=== PATIENT | female | born 1940 | race Caucasian/White ===

== ENCOUNTER 2019-05-26 12:00 | Inpatient (IN) | payer MEDICARE, OTHER, MEDICAID ==
[2019-05-26] VITALS (9 sets, daily range): BP systolic 133–168; BP diastolic 51–91
[~2019-05-26] VITALS: Ht 144.8 cm; Wt 84.8 kg
[2019-05-26] MEDS ORDERED: ETOMIDATE 20 MG/10 ML VIAL IV ONE ×2 (12:05→13:30)
[2019-05-26] MEDS ORDERED: SUCCINYLCHOLINE CHLORIDE 200 MG/10 ML VIAL IV ONE ×2 (12:05→13:30)
[2019-05-26] MEDS ORDERED: methylPREDNISolone SOD SUCC 125 MG/2 ML VIAL ONE (12:12)
[2019-05-26] MEDS ORDERED: TRIA15CR2 TP (12:12)
[2019-05-26] MEDS ORDERED: FURO20TA4 PO (12:12)
[2019-05-26] MEDS ORDERED: GABA-534 PO (12:12)
[2019-05-26] MEDS ORDERED: NIFE20CA8 PO (12:12)
[2019-05-26] MEDS ORDERED: LOSA50TA39 PO (12:12)
[2019-05-26] MEDS ORDERED: CALC1TAB30 PO (12:12)
[2019-05-26] MEDS ORDERED: ALBUTEROL SULFATE 2.5 MG/3 ML NEBU NEB ONE (12:15)
[2019-05-26] MEDS ORDERED: IPRATROPIUM BROMIDE 0.5 MG/2.5 ML NEBU NEB ONE (12:15)
[2019-05-26] MEDS ORDERED: methylPREDNISolone SOD SUCC 125 MG/2 ML VIAL IV ONE (12:15)
--- NOTE | 2019-05-26 12:27 | NUR ---
Accompained pt to Ct, w/ ACLS protocol.
[2019-05-26] MEDS ORDERED: PANT40TA4 PO (12:30)
[2019-05-26] MEDS ORDERED: ALEN70TA6 PO (12:30)
[2019-05-26] MEDS ORDERED: FLUT1BLS6 IH (12:30)
[2019-05-26] MEDS ORDERED: TIZA4TAB5 PO (12:30)
[2019-05-26] MEDS ORDERED: ROSU10TA2 PO (12:30)
[2019-05-26] MEDS ORDERED: DIGO250T PO (12:30)
[2019-05-26] MEDS ORDERED: METR250T36 PO (12:30)
[2019-05-26] MEDS ORDERED: METO25TA6 PO (12:30)
[2019-05-26] MEDS ORDERED: ROFL500T PO (12:30)
[2019-05-26] MEDS ORDERED: ASPI81TA31 PO (12:30)
[2019-05-26] MEDS ORDERED: ICOS1CAP PO (12:30)
[2019-05-26] MEDS ORDERED: ALBUTEROL SULFATE 2.5 MG/ 0.5 ML NEBU ONE (12:34)
[2019-05-26] MEDS ORDERED: IPRATROPIUM BROMIDE 0.5 MG/2.5 ML NEBU ONE (12:34)
[2019-05-26 12:36] LABS: BASOPHILS % (AUTO) 0.2 % (0.0-2.0); EOSINOPHILS % (AUTO) 0.4 % (0.0-7.0); HEMOGLOBIN 9.7 g/dL (10.9-14.3); LYMPHOCYTES # (AUTO) 0.7 K/uL (20.0-40.0); LYMPHOCYTES % (AUTO) 7.4 % (20.5-51.5); MEAN CORPUSCULAR HEMOGLOBIN 28.2 uug (24.7-32.8); MEAN CORPUSCULAR HGB CONC 31 g/dL (32.3-35.6); MEAN CORPUSCULAR VOLUME 90.3 fL (75.5-95.3); MONOCYTES # (AUTO) 0.6 K/uL (2.0-10.0); MONOCYTES % (AUTO) 6.3 % (0.0-11.0); NEUTROPHILS # (AUTO) 8.1 K/uL (1.8-8.9); NEUTROPHILS % (AUTO) 85.7 % (38.5-71.5); PLATELET COUNT (AUTO) 156 K/uL (179-408); RED BLOOD CELL COUNT(AUTO) 3.44 MIL/uL (3.63-4.92); WHITE BLOOD COUNT (AUTO) 9.5 K/uL (3.8-11.8)
--- NOTE | 2019-05-26 12:44 | NUR ---
Pt back to bed, family at the bedside.
[2019-05-26 12:56] LABS: BILIRUBIN,DIRECT 0.1 mg/dL (0.0-0.2); BILIRUBIN,TOTAL 0.4 mg/dL (0.2-1.0); CREATININE 0.7 mg/dL (0.6-1.3); POTASSIUM 4.8 mmol/L (3.5-5.1); TOTAL PROTEIN, SERUM 7.6 g/dL (6.4-8.2)
--- NOTE | 2019-05-26 13:15 | NUR ---
Pt received in ER under respiratory distress. Pt placed on BIPAP while running ABG results. Results reported to MD. ER MD decided to intubated Pt post report of ABG results. Pt intubated with 7.5 ETT secured at 23cm lip line. Pt placed on Garcia vent with ordered settings of A/C-16, VT-600, FIO2-100% Intubated with no complications. Good color changed on CO2 capnography. Equal and bilateral breath sounds auscultated. ETT secured using AnchorFast device. Pt suctioned for small amount of yellowish secretions. Sputum sample sent to lab. Pt tolerating vent settings well. SpO2-99% Vent alarm parameters checked, on audible. Vent plugged into red emergency outlet. Will continue to monitor.
[2019-05-26] MEDS ORDERED: levoFLOXacin 750MG/D5W 150 ML IV ONE ×2 (13:26→13:30)
[2019-05-26] MEDS ORDERED: PROPOFOL 100 ML IV ONE (13:50)
[2019-05-26] MEDS ORDERED: LORAZEPAM 2 MG/1 ML VIAL ONE (13:51)
[2019-05-26] MEDS ORDERED: PROPOFOL 200 MG/20 ML BOTTLE ONE (13:57)
[2019-05-26] MEDS ORDERED: PROPOFOL 100 ML ONE (13:58)
[2019-05-26] MEDS ORDERED: LORAZEPAM 2 MG/1 ML VIAL IV ONE (14:00)
[2019-05-26] MEDS ORDERED: IV NORMAL SALINE 1000 ML BAG IV ONE (14:00)
[2019-05-26 14:52] LABS: *BILIRUBIN,URIN NEGATIVE (NEGATIVE); *BLOOD, URINE NEGATIVE (NEGATIVE); *CLARITY,URINE CLEAR (CLEAR); *COLOR,URINE YELLOW (YELLOW); *KETONES,URINE NEGATIVE (NEGATIVE); *UROBILINOGEN,URINE 0.2 E.U./dl (NORMAL); LEUKOCYTE ESTERASE ,URINE NEGATIVE (NEGATIVE); NITRITE, URINE NEGATIVE (NEGATIVE); PH,URINE 5.5 (5.0-8.0); UGLUCOSE NEGATIVE (NEGATIVE)
--- NOTE | 2019-05-26 15:10 | NUR ---
Patient in from E.R. accompanied by RKmN. And RT team. patient on ventilator A/C 16, Tv. 600 FIO2 90%. ETT 7.5, 23LL. On propofol running at 10ml/hr patient noted to be restless agitated, on soft restrains. Situated in bed, and connected to ICU monitoring. vitals of : HR of 73, 100% saturation, sbp of 133/91. Over all skin c.d.i. no injuries noted. Will continue to monitor. Attending physician called to be notified. Awaiting call back.
--- NOTE | 2019-05-26 15:15 | NUR ---
Patient arousable with coughing and gagging and triggering vent alarm propofol titrated up to achieve optimal sedation. See IV flow sheet.
[2019-05-26] MEDS: LORAZEPAM 2 MG/1 ML VIAL IV PRN ×2 (16:28→23:12)
--- NOTE | 2019-05-26 17:30 | NUR ---
Pulmonary services, Dr. Hi Mckenzie. in the unit to see and examine patient, aware of latest ABG results.
[2019-05-26] MEDS: PROPOFOL 100 ML IV PRN ×2 (17:40→21:55)
[2019-05-26] MEDS: ENOXAPARIN SODIUM 40 MG/0.4 ML DISP.SYRIN SQ SCH (18:05)
--- NOTE | 2019-05-26 18:07 | NUR ---
Attending physician Davidson Da Silva in the unit to examine patient, and at this time had an extensive care plan discussion with pt's daughter in law MsKm Dorsey and Bella who remain at bedside.
[2019-05-26] MEDS: IV NORMAL SALINE 250 ML IV PRN (18:43)
[2019-05-26] MEDS: CEFTRIAXONE 1 G in IV DEXTROSE 5% 50 ML IV SCH (18:45)
--- NOTE | 2019-05-26 19:55 | NUR ---
PT RECEIVED ON CONTINUOUS VENT AC 16 VT600 FIO2 90%. ETT SECURED AT 23 CM LIP LINE VIA ANCHOR FAST. BS DIMINISHED. SUCTION PRN SMALL AMOUNT THICK PALE YELLOW SECRETIONS. VENT CHECKED, ALARMS WORKING WELL AND AUDIBLE. NO DISTRESS NOTED AT THIS TIME. WILL CONTINUE TO MONITOR.
--- NOTE | 2019-05-26 20:00 | NUR ---
RECEIVED PT. ORALLY INTUBATED TO VENT W/ SETTINGS OF AC-16,TV-600,FIO2-90% W/ O2 SAT OF 96%. SUCTIONED VIA ETT & ORALLY W/ THIN WHITISH SMALL AMT.OF MUCOUS. ON DIPRIVAN DRIP @ 50MCQ/KG/MIN ON LFA. NS @ TKO RATE ON L WRIST FOR IVPB MEDS. TEMP-99.7, COOLING MEASURES DONE. REPOSITIONED PT ON HER W/ HOB ELEVATED.
[2019-05-26] MEDS: FAMOTIDINE. 20 MG/2 ML VIAL IV SCH (20:28)
[2019-05-26] MEDS: methylPREDNISolone SOD SUCC 40 MG/ML VIAL IV SCH (21:54)
--- NOTE | 2019-05-26 23:00 | NUR ---
HS CARE DONE. SUCTIONED & REPOSITIONED W/ HOB ELEVATED. ORAL CARE DONE
[2019-05-27] VITALS (25 sets, daily range): BP systolic 141–177; BP diastolic 52–86
--- NOTE | 2019-05-27 | NUR ---
[facility] FR#16 INSERTED ON R NARE.
[2019-05-27] MEDS: PROPOFOL 100 ML IV PRN ×6 (01:24→19:33)
[2019-05-27 03:14] LABS: ABG BASE EXCESS 20.7 mmol/L; ABG HCO3 46.3 mmol/L; ABG PCO2 59.1 mmHg (35.0-45.0); ABG PH 7.512 (7.350-7.450); ABG SITE LEFT BRACHIAL; ABG TOTAL HEMOGLOBIN 9.4 G/dL (12.0-16.0); COHb 1.4 % (0.5-1.5); MetHb 0.1 % (0.0-1.5); VENT MODE VENT - A/C; VT, ABG 600 mL
--- NOTE | 2019-05-27 04:30 | NUR ---
AM CARE DONE. ORAL CARE DONE. REPOSITIONED & SUCTIONED.
[2019-05-27 05:12] LABS: BASOPHILS % (AUTO) 0.2 % (0.0-2.0); EOSINOPHILS % (AUTO) 0.2 % (0.0-7.0); HEMATOCRIT 26.3 % (31.2-41.9); HEMOGLOBIN 8.8 g/dL (10.9-14.3); LYMPHOCYTES # (AUTO) 0.4 K/uL (20.0-40.0); LYMPHOCYTES % (AUTO) 6.5 % (20.5-51.5); MEAN CORPUSCULAR HEMOGLOBIN 28.7 uug (24.7-32.8); MEAN CORPUSCULAR HGB CONC 33 g/dL (32.3-35.6); MEAN CORPUSCULAR VOLUME 86.1 fL (75.5-95.3); MONOCYTES # (AUTO) 0.4 K/uL (2.0-10.0); MONOCYTES % (AUTO) 5.7 % (0.0-11.0); NEUTROPHILS % (AUTO) 87.4 % (38.5-71.5); PLATELET COUNT (AUTO) 158 K/uL (179-408); RED BLOOD CELL COUNT(AUTO) 3.05 MIL/uL (3.63-4.92); WHITE BLOOD COUNT (AUTO) 6.9 K/uL (3.8-11.8)
--- NOTE | 2019-05-27 05:25 | NUR ---
CXR DONE .TO CONFIRM NGT PLACEMENT.
[2019-05-27 05:26] LABS: BILIRUBIN,TOTAL 0.4 mg/dL (0.2-1.0); CREATININE 0.7 mg/dL (0.6-1.3); MAGNESIUM 1.7 mg/dL (1.8-2.4); POTASSIUM 4.6 mmol/L (3.5-5.1); TOTAL PROTEIN, SERUM 6.4 g/dL (6.4-8.2)
[2019-05-27] MEDS: methylPREDNISolone SOD SUCC 40 MG/ML VIAL IV SCH ×3 (05:29→21:42)
[2019-05-27 05:37] LABS: THYROID STIMULATING HORMONE 0.536 mIU/mL (0.358-3.740)
[2019-05-27] MEDS: FAMOTIDINE. 20 MG/2 ML VIAL IV SCH ×2 (09:02→21:04)
--- NOTE | 2019-05-27 09:30 | NUR ---
Doctor Do in the unit to see patient. new vent changes.
[2019-05-27 10:15] LABS: ABG BASE EXCESS 15.5 mmol/L; ABG HCO3 40.9 mmol/L; ABG PCO2 53.2 mmHg (35.0-45.0); ABG PH 7.504 (7.350-7.450); ABG PO2 73.2 mmHg (75.0-100.0); ABG SITE RIGHT RADIAL; ABG TOTAL HEMOGLOBIN 12.6 G/dL (12.0-16.0); COHb 1.1 % (0.5-1.5); MetHb 0.1 % (0.0-1.5); O2Hb 94.6 % (94.0-97.0); VENT MODE VENT - A/C 16; VT, ABG 600 mL
[2019-05-27 10:15] LABS: ABG BASE EXCESS 21.5 mmol/L; ABG HCO3 54.1 mmol/L; ABG PCO2 137.7 mmHg (35.0-45.0); ABG PH 7.212 (7.350-7.450); ABG PO2 91.9 mmHg (75.0-100.0); ABG SITE LEFT BRACHIAL; ABG TOTAL HEMOGLOBIN 10.2 G/dL (12.0-16.0); COHb 2.3 % (0.5-1.5); MetHb 0.1 % (0.0-1.5); VENT MODE BIPAP
[2019-05-27] MEDS: MAGNESIUM SULFATE/D5W 100 ML IV SCH ×2 (10:52→12:02)
[2019-05-27] MEDS ORDERED: DEXTROSE 5% IV ONE (11:00)
[2019-05-27] MEDS ORDERED: SODIUM PHOSPHATE MM IV ONE (11:00)
[2019-05-27] MEDS: IPRATROPIUM BROMIDE 0.5 MG/2.5 ML NEBU NEB SCH ×4 (11:59→22:40)
[2019-05-27] MEDS: ALBUTEROL SULFATE 2.5 MG/3 ML NEBU NEB SCH ×4 (11:59→22:40)
--- NOTE | 2019-05-27 15:00 | NUR ---
doctor al in the unit informed and updated. prn order for bp ordered at this time only.
[2019-05-27] MEDS ORDERED: hydrALAZINE HCL 20 MG/1 ML VIAL IV PRN (17:30)
--- NOTE | 2019-05-27 17:30 | NUR ---
PT REC'D ORALLY INTUBATED ON FULL VENT SUPPORT, PT TOLERATING SETTINGS WELL AT THIS TIME. INLINE NEB TX'S STARTED Q4, TOLERATED WELL NO ADVERSE REACTIONS NOTED TO TX. PT SXN'D Q2 NEEDED, VENT ALARMS AUDIBLE CHECKED AND RESET. BVM AT BEDSIDE. CONT WITH CURRENT RT ORDERS. CONT TO MONITOR AND REPORT ANY CHANGES.
[2019-05-27] MEDS: CEFTRIAXONE 1 G in IV DEXTROSE 5% 50 ML IV SCH (18:13)
[2019-05-27] MEDS: ENOXAPARIN SODIUM 40 MG/0.4 ML DISP.SYRIN SQ SCH (18:46)
--- NOTE | 2019-05-27 20:00 | NUR ---
Report received. Patient orally intubated and attached to mechanical ventilator with settings: AC=16, KA=169 ml, FIO2=70%, PEEP=5cm. Saturations above 94%. Opens eyes and grimaces to pain but doesn't follow commands. On continuous Diprivan drip for sedation via MARYAM midline. Addendum: 05/28/19 at 0642 by FORD GUIDO RN Amended: Links added. Addendum: 05/28/19 at 0644 by FORD GUIDO RN Amended: Links added. Addendum: 05/28/19 at 0648 by FORD GUIDO RN Amended: Links added.
--- NOTE | 2019-05-27 22:00 | NUR ---
Hydralazine 10 mg IV given for SBP above 170. Addendum: 05/28/19 at 0644 by FORD GUIDO RN Amended: Links added. Addendum: 05/28/19 at 0648 by FORD GUIDO RN Amended: Links added.
--- NOTE | 2019-05-27 22:30 | NUR ---
Hydralazine effective.
[2019-05-28] VITALS (21 sets, daily range): BP systolic 122–162; BP diastolic 53–65
[2019-05-28] MEDS: PROPOFOL 100 ML IV PRN ×7 (00:13→21:59)
[2019-05-28] MEDS: IPRATROPIUM BROMIDE 0.5 MG/2.5 ML NEBU NEB SCH ×7 (02:47→23:07)
[2019-05-28] MEDS: ALBUTEROL SULFATE 2.5 MG/3 ML NEBU NEB SCH ×7 (02:47→23:07)
[2019-05-28] MEDS: IV NORMAL SALINE 250 ML IV PRN (04:11)
[2019-05-28 05:22] LABS: BASOPHILS % (AUTO) 0.1 % (0.0-2.0); EOSINOPHILS % (AUTO) 0.1 % (0.0-7.0); HEMATOCRIT 27.4 % (31.2-41.9); HEMOGLOBIN 8.9 g/dL (10.9-14.3); LYMPHOCYTES # (AUTO) 0.4 K/uL (20.0-40.0); LYMPHOCYTES % (AUTO) 6.3 % (20.5-51.5); MEAN CORPUSCULAR HEMOGLOBIN 28.2 uug (24.7-32.8); MEAN CORPUSCULAR HGB CONC 33 g/dL (32.3-35.6); MEAN CORPUSCULAR VOLUME 86.6 fL (75.5-95.3); MONOCYTES # (AUTO) 0.4 K/uL (2.0-10.0); MONOCYTES % (AUTO) 5.3 % (0.0-11.0); NEUTROPHILS # (AUTO) 5.9 K/uL (1.8-8.9); NEUTROPHILS % (AUTO) 88.2 % (38.5-71.5); PLATELET COUNT (AUTO) 205 K/uL (179-408); RED BLOOD CELL COUNT(AUTO) 3.16 MIL/uL (3.63-4.92); WHITE BLOOD COUNT (AUTO) 6.7 K/uL (3.8-11.8)
[2019-05-28 05:27] LABS: CREATININE 0.7 mg/dL (0.6-1.3); MAGNESIUM 2.3 mg/dL (1.8-2.4); PHOSPHOROUS 4.5 mg/dL (2.5-4.9); POTASSIUM 4.1 mmol/L (3.5-5.1)
[2019-05-28] MEDS: methylPREDNISolone SOD SUCC 40 MG/ML VIAL IV SCH ×2 (05:58→21:07)
--- NOTE | 2019-05-28 06:45 | NUR ---
No neuro changes. Remains on Diprivan drip at 40 mcg/kg/min. Addendum: 05/28/19 at 0648 by FORD GUIDO RN Amended: Links added.
[2019-05-28] MEDS: FAMOTIDINE. 20 MG/2 ML VIAL IV SCH ×2 (08:28→21:07)
[2019-05-28] MEDS: LORAZEPAM 2 MG/1 ML VIAL IV PRN ×3 (08:34→22:27)
[2019-05-28 08:52] LABS: ABG BASE EXCESS 12.1 mmol/L; ABG HCO3 35.8 mmol/L; ABG PCO2 42.9 mmHg (35.0-45.0); ABG PH 7.539 (7.350-7.450); ABG PO2 128.5 mmHg (75.0-100.0); ABG SITE LEFT RADIAL; ABG TOTAL HEMOGLOBIN 9.7 G/dL (12.0-16.0); MetHb 0.2 % (0.0-1.5); O2Hb 97.8 % (94.0-97.0); VENT MODE VENT - A/C; VT, ABG 600 mL
--- NOTE | 2019-05-28 09:45 | NUR ---
Pulmonary services, Dr. Do in the unit to see and examine patient, full report given, orders received, see order hx.
--- NOTE | 2019-05-28 11:20 | NUR ---
Attending physician, Dr. Ortiz in the unit to see and examine patient, report given orders to change frequency for ativan received to achieve adequate sedation.
[2019-05-28] MEDS ORDERED: levoFLOXacin 750MG/D5W 750 MG in PREMIXED 1 EACH IV SCH (13:30)
[2019-05-28] MEDS: CEFTRIAXONE 1 G in IV DEXTROSE 5% 50 ML IV SCH (17:01)
[2019-05-28] MEDS: ENOXAPARIN SODIUM 40 MG/0.4 ML DISP.SYRIN SQ SCH (17:04)
--- NOTE | 2019-05-28 19:30 | NUR ---
Report received. Patient orally intubated and to mechanical ventilator with settings: AC=16, FIO2=60%, PEEP=5 cm and CV=080 ml. Saturation=95%. Suctioned for large amounts of clear oral secretions. With facial grimacing during care. Turned and repositioned. On Diprivan drip continuously for sedation. Doesn't open eyes to name, but able to bring hand and attempts to reach for the ETT when suctioned. Assessment completed. Addendum: 05/28/19 at 2302 by FORD GUIDO RN Amended: Links added. Addendum: 05/28/19 at 2303 by FORD GUIDO RN Amended: Links added. Addendum: 05/28/19 at 2303 by FORD GUIDO RN Amended: Links added. Addendum: 05/28/19 at 2303 by FORD GUIDO RN Amended: Links added. Addendum: 05/28/19 at 2303 by FORD GUIDO RN Amended: Links added. Addendum: 05/28/19 at 2304 by FORD GUIDO RN Amended: Links added. Addendum: 05/28/19 at 2305 by FORD GUIDO RN Amended: Links added. Addendum: 05/28/19 at 2305 by FORD GUIDO RN Amended: Links added. Addendum: 05/28/19 at 8461 by FORD GUIDO RN Amended: Links added.
--- NOTE | 2019-05-28 22:00 | NUR ---
Saturations 88-92%. Suctioned for thick white, majano secretions from ETT. With large clear oral secretions. Patient grimaces to pain. Medicated with Ativan IV. Monitored closely. Repositioned; HOB above 30 degrees at all times. Addendum: 05/28/19 at 2257 by FORD GUIDO RN Amended: Links added. Addendum: 05/28/19 at 2303 by FORD GUIDO RN Amended: Links added. Addendum: 05/28/19 at 2303 by FORD GUIDO RN Amended: Links added. Addendum: 05/28/19 at 2304 by FORD GUIDO RN Amended: Links added. Addendum: 05/28/19 at 2304 by FORD GUIDO RN Amended: Links added. Addendum: 05/28/19 at 2304 by FORD GUIDO RN Amended: Links added. Addendum: 05/28/19 at 4 by FORD GUIDO RN Amended: Links added. Addendum: 05/28/19 at 2305 by FORD GUIDO RN Amended: Links added. Addendum: 05/28/19 at 2305 by FORD GUIDO RN Amended: Links added. Addendum: 05/28/19 at 2345 by FORD GUIDO RN Amended: Links added.
--- NOTE | 2019-05-28 23:00 | NUR ---
Winston SHARP here. Patient's condition discussed. In line treatment given. Suctioned after. FIO2 titrated up to 100% for now. Will monitor. Addendum: 05/29/19 at 0017 by FORD GUIDO RN Amended: Links added. Addendum: 05/29/19 at 0022 by FORD GUIDO RN Amended: Links added.
--- NOTE | 2019-05-28 23:39 | NUR ---
Spoke to Dr. Galvez re: patient's respiratory status. Orders received. PEEP increased to 8 cm by RT. Will monitor. Addendum: 05/28/19 at 2345 by FORD GUIDO RN Amended: Links added.
[2019-05-28] MEDS ORDERED: FUROSEMIDE 40 MG/4 ML VIAL IV ONE (23:45)
--- NOTE | 2019-05-28 23:49 | NUR ---
Lasix 40 mg IV given as ordered. Addendum: 05/29/19 at 0022 by FORD GUIDO RN Amended: Links added.
[2019-05-29] VITALS (25 sets, daily range): BP systolic 97–138; BP diastolic 45–60
[2019-05-29] MEDS: PROPOFOL 100 ML IV PRN ×7 (01:30→22:42)
--- NOTE | 2019-05-29 01:30 | NUR ---
PEEP increased to 10 cm as ordered by and FIO2 decreased to 80% by RT. Saturations above 96%. Addendum: 05/29/19 at 0321 by FORD GUIDO RN Amended: Links added.
[2019-05-29] MEDS ORDERED: Z GUARD REMEDY PASTE 57 GM TUBE TOP PRN (03:15)
[2019-05-29] MEDS: IV NORMAL SALINE 250 ML IV PRN ×2 (03:37→22:41)
[2019-05-29] MEDS: IPRATROPIUM BROMIDE 0.5 MG/2.5 ML NEBU NEB SCH ×6 (03:50→22:30)
[2019-05-29] MEDS: ALBUTEROL SULFATE 2.5 MG/3 ML NEBU NEB SCH ×6 (03:50→22:30)
--- NOTE | 2019-05-29 04:12 | NUR ---
PT ON CONT MARTINEZ VENT WITH 7.5 ET/TUBE IN PLACE WITH ANCHOR FAST, POSITION Q2, PT DID DE SATURATE, PT WAS ON FIO2 @ 70%, PEEP5, THEN DR LOVING WAS CALLED BY FORD Patel WITH DIFFERENT VENT SETTINGS, FIO2 @ 100%, WITH PEEP 8, THEN PEEP 10, THEN TITRATE FIO2 @ 80% , CURRENT AT 80%, SUCTION SLIGHT WEAK COUGH AND GAG REFLEX, SUCTION PALE YELL AND PINKISH TINGE SECRETIONS, WITH NEB INLINE Q4 WITH ALBUTEROL/ ATROVENT TOLL WELL, ALL VENT ALARMS OK, CHANGE HME, AMBU BAG AT BEDSIDE.Michelle ESTRADA RCP Addendum: 05/29/19 at 0416 by GIANFRANCO ESTRADA RT Amended: Links added.
[2019-05-29 05:21] LABS: BASOPHILS % (AUTO) 0.1 % (0.0-2.0); HEMATOCRIT 29.7 % (31.2-41.9); HEMOGLOBIN 9.5 g/dL (10.9-14.3); LYMPHOCYTES # (AUTO) 0.4 K/uL (20.0-40.0); LYMPHOCYTES % (AUTO) 4.4 % (20.5-51.5); MEAN CORPUSCULAR HEMOGLOBIN 27.6 uug (24.7-32.8); MEAN CORPUSCULAR HGB CONC 32 g/dL (32.3-35.6); MEAN CORPUSCULAR VOLUME 86.4 fL (75.5-95.3); MONOCYTES # (AUTO) 0.4 K/uL (2.0-10.0); MONOCYTES % (AUTO) 4.4 % (0.0-11.0); NEUTROPHILS # (AUTO) 8.2 K/uL (1.8-8.9); NEUTROPHILS % (AUTO) 91.1 % (38.5-71.5); PLATELET COUNT (AUTO) 228 K/uL (179-408); RED BLOOD CELL COUNT(AUTO) 3.43 MIL/uL (3.63-4.92)
[2019-05-29 05:38] LABS: CREATININE 0.8 mg/dL (0.6-1.3); MAGNESIUM 2.1 mg/dL (1.8-2.4); PHOSPHOROUS 5.7 mg/dL (2.5-4.9); POTASSIUM 4.1 mmol/L (3.5-5.1)
--- NOTE | 2019-05-29 07:00 | NUR ---
Remains on Diprivan drip at 50 mcg/kg/min. Current vent settings: AC=16, YM=965gp, FIO2=80%, PEEP=10 cm. Sat above 94%.
[2019-05-29] MEDS: methylPREDNISolone SOD SUCC 40 MG/ML VIAL IV SCH ×2 (09:07→20:35)
[2019-05-29] MEDS: FAMOTIDINE. 20 MG/2 ML VIAL IV SCH ×2 (09:07→20:35)
[2019-05-29] MEDS: Z GUARD REMEDY PASTE 57 GM TUBE TOP SCH ×2 (09:08→20:35)
--- NOTE | 2019-05-29 10:00 | NUR ---
Doctor borja in the unit to see patient. new orders in system.
--- NOTE | 2019-05-29 10:43 | NUR ---
Dr. Delgado in the unit to see patient. will start tube feeding today.
--- NOTE | 2019-05-29 11:10 | NUR ---
per doctor Do order vent peep was decreased to peep of 8 as tolerated and to keep saturation above 92%.
[2019-05-29] MEDS: OSMOLITE 1.2 CAL 1,000 ML LIQUID GT PRN (15:20)
--- NOTE | 2019-05-29 17:20 | NUR ---
PT REMAINS ON MECHANICAL VENTILATION, ABLE TO WEAN PEEP TO 8 PER MD ORDER, PT DID NOT TOLERATE PEEP OF 6. INLINE TXS GIVEN WITH NO ADVERSE REACTIONS. WILL CONTINUE TO MONITOR, WEAN PEEP TO 5 TOLERATED.
--- NOTE | 2019-05-29 17:20 | NUR ---
patient not tolerating peep of 6. patient saturates 90- 91% on peep6. increased back to peep of 8 per RT.
[2019-05-29] MEDS: PROTEIN SUPPLEMENT (PROSTAT) 30 ML LIQUID GT SCH (17:26)
[2019-05-29] MEDS: CEFTRIAXONE 1 G in IV DEXTROSE 5% 50 ML IV SCH (17:26)
[2019-05-29] MEDS: ENOXAPARIN SODIUM 40 MG/0.4 ML DISP.SYRIN SQ SCH (17:28)
--- NOTE | 2019-05-29 19:30 | NUR ---
rounds made patient in bed orally intubated and on ac mode 14/600/50% and peep of 8 ,tolerating vent settings 100% and rr 14. suction via mouth and via ett with moderate thin ,blood tinged secretions.hob up . moderately sedated on propofol 50 mcg/kg/min . sedation vacation done when off propofol patient able to moved bilateral upper extremities slow and weak .doesn't follow commands .facial grimaces noted to light pain. tf in progress tolerating Osmolite 1.5 at 25 ml/hr goal of 55 ml/hr for 22 hours ,advance to 10 ml q8 hours . f/c to bsd with yellowish urine .continue to monitor v/s and levels of pain .
--- NOTE | 2019-05-29 20:30 | NUR ---
patients grand daughter came and updated with patient status and condition ,advised to came and visit patient during the day because MD comes during the days. she said she will try to come in am .
[2019-05-29] MEDS ORDERED: CEFEPIME HCL 1 G in IV DEXTROSE 5% 50 ML IV SCH (21:30)
--- NOTE | 2019-05-29 21:30 | NUR ---
FLORESITA GRESHAM came and examined patient with new antibiotic order .
--- NOTE | 2019-05-29 22:30 | NUR ---
CALLED ID /MP service for verification of new antibiotic order cefepime as per outside pharmacy unable to verify patient is allergic to penicillins , and cefepime cross allergy to PCN .
[2019-05-29] MEDS ORDERED: CEFEPIME HCL 1 G VIAL ONE (22:53)
--- NOTE | 2019-05-29 23:00 | NUR ---
called ID service for verification of antibiotic order and informed nursing supervisor char house this is the second call .
--- NOTE | 2019-05-29 23:54 | NUR ---
spoked to RESIDENT DOCTOR MP wade to give cefepime patient already on Rocephin .og to give called outside pharmacy .
[2019-05-30] VITALS (27 sets, daily range): BP systolic 92–130; BP diastolic 41–67
--- NOTE | 2019-05-30 | NUR ---
turned and reposition and patient continue with propofol and adjust according to level of sedation .i and o done and tolerating tube feedings no residual and advance as directed Osmolite 1.5 now 35 ml /hr . hob up as precaution precaution observed.
[2019-05-30] MEDS ORDERED: CEFEPIME HCL 1 G VIAL ONE (00:22)
[2019-05-30] MEDS: PROPOFOL 100 ML IV PRN ×7 (01:08→22:12)
--- NOTE | 2019-05-30 02:00 | NUR ---
turned and reposition patient .continue to monitor v/s .
[2019-05-30] MEDS: IPRATROPIUM BROMIDE 0.5 MG/2.5 ML NEBU NEB SCH ×6 (02:30→23:21)
[2019-05-30] MEDS: ALBUTEROL SULFATE 2.5 MG/3 ML NEBU NEB SCH ×6 (02:30→23:21)
--- NOTE | 2019-05-30 06:00 | NUR ---
am care done ,changed soiled linens and gown oral care done and f/c done . turned and reposition .
[2019-05-30 06:35] LABS: BASOPHILS % (AUTO) 0.1 % (0.0-2.0); EOSINOPHILS % (AUTO) 0.1 % (0.0-7.0); HEMATOCRIT 27.4 % (31.2-41.9); HEMOGLOBIN 8.9 g/dL (10.9-14.3); LYMPHOCYTES # (AUTO) 0.4 K/uL (20.0-40.0); LYMPHOCYTES % (AUTO) 5.3 % (20.5-51.5); MEAN CORPUSCULAR HEMOGLOBIN 28.2 uug (24.7-32.8); MEAN CORPUSCULAR HGB CONC 33 g/dL (32.3-35.6); MEAN CORPUSCULAR VOLUME 86.8 fL (75.5-95.3); MONOCYTES # (AUTO) 0.5 K/uL (2.0-10.0); NEUTROPHILS # (AUTO) 6.9 K/uL (1.8-8.9); NEUTROPHILS % (AUTO) 88.5 % (38.5-71.5); PLATELET COUNT (AUTO) 203 K/uL (179-408); RED BLOOD CELL COUNT(AUTO) 3.15 MIL/uL (3.63-4.92); WHITE BLOOD COUNT (AUTO) 7.8 K/uL (3.8-11.8)
[2019-05-30 06:55] LABS: CREATININE 0.9 mg/dL (0.6-1.3); MAGNESIUM 2.4 mg/dL (1.8-2.4); PHOSPHOROUS 5.1 mg/dL (2.5-4.9); POTASSIUM 3.7 mmol/L (3.5-5.1)
[2019-05-30] MEDS: PROTEIN SUPPLEMENT (PROSTAT) 30 ML LIQUID GT SCH ×2 (07:58→17:14)
[2019-05-30] MEDS: CEFEPIME HCL 1 G in IV DEXTROSE 5% 50 ML IV SCH ×2 (08:02→20:32)
[2019-05-30] MEDS: Z GUARD REMEDY PASTE 57 GM TUBE TOP SCH ×2 (08:03→20:32)
[2019-05-30] MEDS: methylPREDNISolone SOD SUCC 40 MG/ML VIAL IV SCH ×2 (08:03→20:32)
[2019-05-30] MEDS: FAMOTIDINE. 20 MG/2 ML VIAL IV SCH ×2 (08:03→20:31)
--- NOTE | 2019-05-30 08:30 | NUR ---
Sedation Vacation done, pt.coughing/gaging diprivan restarted at same rate.
[2019-05-30] MEDS: OSMOLITE 1.2 CAL 1,000 ML LIQUID GT PRN (09:28)
--- NOTE | 2019-05-30 09:30 | NUR ---
PT.FAMILY AT BEDSIDE UPDATED WITH PT.CONDITION AND PLAN OF CARE.
[2019-05-30 09:53] LABS: ABG BASE EXCESS 10.2 mmol/L; ABG HCO3 34.5 mmol/L; ABG PCO2 45.1 mmHg (35.0-45.0); ABG PH 7.501 (7.350-7.450); ABG PO2 90.9 mmHg (75.0-100.0); ABG SITE RIGHT RADIAL; ABG TOTAL HEMOGLOBIN 11.4 G/dL (12.0-16.0); COHb 1.1 % (0.5-1.5); O2Hb 95.8 % (94.0-97.0); VENT MODE VENT - A/C; VT, ABG 600 mL
[2019-05-30 09:53] LABS: ABG BASE EXCESS 10.8 mmol/L; ABG HCO3 36.2 mmol/L; ABG PCO2 53.2 mmHg (35.0-45.0); ABG PH 7.451 (7.350-7.450); ABG PO2 203.3 mmHg (75.0-100.0); ABG SITE RIGHT BRACHIAL; COHb 0.2 % (0.5-1.5); MetHb 0.1 % (0.0-1.5); O2Hb 99.4 % (94.0-97.0); VENT MODE VENT - A/C; VT, ABG 600 mL
--- NOTE | 2019-05-30 10:20 | NUR ---
PT.WAS SEEN BY WITH NEW ORDERS
[2019-05-30] MEDS: ACETYLCYSTEINE 10% 4ML VIAL NEB SCH ×2 (15:41→23:21)
[2019-05-30] MEDS: ENOXAPARIN SODIUM 40 MG/0.4 ML DISP.SYRIN SQ SCH (17:15)
--- NOTE | 2019-05-30 17:30 | NUR ---
No changes in pt. condition, no s/s of distress or pain noted.
--- NOTE | 2019-05-30 19:08 | NUR ---
RT PT REC'D ORALLY INTUBATED ON FULL VENT SUPPORT, PT TOLERATING SETTINGS WELL AT THIS TIME. INLINE TX'S GIVING Q4, TOLERATED WELL NO ADVERSE REACTIONS NOTED TO TX. PT SXN'D Q2 NEEDED, VENT ALARMS AUDIBLE CHECKED AND RESET. BVM AT BEDSIDE. CONT WITH CURRENT RT ORDERS. WILL CONT TO MONITOR.
--- NOTE | 2019-05-30 19:30 | NUR ---
Report received. Patient orally intubated and to mechanical ventilator settings as follows: AC=14, MQ=725bx, PEEP=5 cm and FIO2=50%. Sat above 94%. Opens eyes to loud name calls, easily gets agitated, doesn't follow commands but attempts to reach for the ETT. Reoriented and advised. On continuous Diprivan drip at 50 mcg/kg/min. Suctioned for moderate white to majano secretions both from ETT and orally. Addendum: 05/31/19 at 0428 by FORD GUIDO RN Amended: Links added.
[2019-05-30] MEDS: LORAZEPAM 2 MG/1 ML VIAL IV PRN (20:31)
--- NOTE | 2019-05-30 20:31 | NUR ---
Medicated with Ativan IV for restlessness. Patient monitored closely. Addendum: 05/31/19 at 0534 by FORD GUIDO RN Amended: Links added.
[2019-05-31] VITALS (23 sets, daily range): BP systolic 96–177; BP diastolic 36–90
[2019-05-31] MEDS: IV NORMAL SALINE 250 ML IV PRN (00:04)
[2019-05-31] MEDS: PROPOFOL 100 ML IV PRN ×6 (01:23→21:55)
[2019-05-31] MEDS: IPRATROPIUM BROMIDE 0.5 MG/2.5 ML NEBU NEB SCH ×6 (03:32→22:44)
[2019-05-31] MEDS: ALBUTEROL SULFATE 2.5 MG/3 ML NEBU NEB SCH ×6 (03:32→22:44)
[2019-05-31 05:36] LABS: EOSINOPHILS % (AUTO) 0.6 % (0.0-7.0); HEMATOCRIT 38.9 % (31.2-41.9); HEMOGLOBIN 12.5 g/dL (10.9-14.3); LYMPHOCYTES # (AUTO) 0.2 K/uL (20.0-40.0); LYMPHOCYTES % (AUTO) 7.1 % (20.5-51.5); MEAN CORPUSCULAR HEMOGLOBIN 27.7 uug (24.7-32.8); MEAN CORPUSCULAR HGB CONC 32 g/dL (32.3-35.6); MEAN CORPUSCULAR VOLUME 86.4 fL (75.5-95.3); MONOCYTES # (AUTO) 0.2 K/uL (2.0-10.0); MONOCYTES % (AUTO) 5.4 % (0.0-11.0); NEUTROPHILS # (AUTO) 2.9 K/uL (1.8-8.9); NEUTROPHILS % (AUTO) 86.9 % (38.5-71.5); PLATELET COUNT (AUTO) 112 K/uL (179-408); WHITE BLOOD COUNT (AUTO) 3.4 K/uL (3.8-11.8)
--- NOTE | 2019-05-31 06:00 | NUR ---
Diprivan drip titrated down to 40 mcg/kg/min. For CPAP trial at 0700. Addendum: 05/31/19 at 0649 by FORD GUIDO RN Amended: Links added. Addendum: 05/31/19 at 0700 by FORD GUIDO RN Amended: Links added.
--- NOTE | 2019-05-31 06:30 | NUR ---
Diprivan drip decreased to 30 mcg then to 20 mcg; patient got mildly agitated, opens eyes and tracking but attempted to reach for the ETT. Bilateral soft wrist restraints applied. Patient advised and reoriented. Monitored closely. Addendum: 05/31/19 at 0700 by FORD GUIDO RN Amended: Links added.
[2019-05-31] MEDS: ACETYLCYSTEINE 10% 4ML VIAL NEB SCH ×3 (07:23→22:44)
--- NOTE | 2019-05-31 07:30 | NUR ---
Recieved pt lying in bed, half awake, on Propofol drip running at 10mcg/min.Pt is intubaqted and connected to mechanicaql vent. From an AC setting, to weaning on CPAP of 5, PS 8. Diprivan drip is turned off and pt is more awake. Followsw commands but is on wrist restraints for safety protection. Appears agitated and restless while breathing on her own, tachycardic in the 30's. Weaning process continued for 1 hour as ordered and ABG drawn.
[2019-05-31 08:14] LABS: CREATININE 0.8 mg/dL (0.6-1.3); MAGNESIUM 2.5 mg/dL (1.8-2.4); PHOSPHOROUS 3.9 mg/dL (2.5-4.9); POTASSIUM 3.4 mmol/L (3.5-5.1)
[2019-05-31 08:26] LABS: ABG BASE EXCESS 8.3 mmol/L; ABG HCO3 36.2 mmol/L; ABG PCO2 71.3 mmHg (35.0-45.0); ABG PH 7.324 (7.350-7.450); ABG PO2 79.6 mmHg (75.0-100.0); ABG SITE RIGHT RADIAL; ABG TOTAL HEMOGLOBIN 10.6 G/dL (12.0-16.0); COHb 0.8 % (0.5-1.5); CPAP,BG 5 cmH20; MetHb 0.1 % (0.0-1.5); O2Hb 92.1 % (94.0-97.0); VENT MODE VENT - CPAP 5 PS8; VT, ABG 310 mL
[2019-05-31] MEDS: CEFEPIME HCL 1 G in IV DEXTROSE 5% 50 ML IV SCH ×2 (08:49→20:38)
[2019-05-31] MEDS: FAMOTIDINE. 20 MG/2 ML VIAL IV SCH (08:49)
[2019-05-31] MEDS: methylPREDNISolone SOD SUCC 40 MG/ML VIAL IV SCH ×2 (08:51→20:39)
[2019-05-31] MEDS: Z GUARD REMEDY PASTE 57 GM TUBE TOP SCH ×2 (08:52→20:58)
[2019-05-31] MEDS: PROTEIN SUPPLEMENT (PROSTAT) 30 ML LIQUID GT SCH ×2 (08:52→17:24)
[2019-05-31] MEDS: OSMOLITE 1.2 CAL 1,000 ML LIQUID GT PRN (10:00)
--- NOTE | 2019-05-31 12:30 | NUR ---
Seen and examined by Dr Mcmanus with new orders.
[2019-05-31] MEDS ORDERED: POTASSIUM CHLORIDE 20 MEQ POWDER PACKET GT ONE (13:45)
[2019-05-31] MEDS: ACETAMINOPHEN 325 MG TABLET PO PRN (14:06)
--- NOTE | 2019-05-31 15:30 | NUR ---
Pt taken doown to CT scan via bed, with RT and audio video tech. Pt tolerating well.
[2019-05-31] MEDS: ENOXAPARIN SODIUM 40 MG/0.4 ML DISP.SYRIN SQ SCH (17:26)
--- NOTE | 2019-05-31 20:00 | NUR ---
RIGHT ABDOMINAL HERNIA PRESENT
--- NOTE | 2019-05-31 20:23 | NUR ---
* Performs deep breathing and coughing * Exhibits no adventitious breath sounds * Maintains adequate ventilation Addendum: 05/31/192023 by ANALI KESSLER RN Amended: Links added.
--- NOTE | 2019-05-31 20:24 | NUR ---
* Maintains baseline ABG's * Evidences usual mental status * Evidences usual skin color Addendum: 05/31/19 at 2023 by ANALI KESSLER RN Amended: Links added.
--- NOTE | 2019-05-31 20:24 | NUR ---
Maintain vital signs WNL * Maintain optimal lab values Addendum: 05/31/19 at 2023 by ANALI KESSLER RN Amended: Links added.
--- NOTE | 2019-05-31 20:24 | NUR ---
* Maintains a patent airway * Maintains vital signs WNL * Maintains baseline ABG'S * Maintains optimal breath sounds Addendum: 05/31/19 at 2023 by ANALI KESSLER RN Amended: Links added.
--- NOTE | 2019-05-31 20:26 | NUR ---
TAYLOR GRESHAM , IS HERE TO SEE PATIENT
[2019-05-31] MEDS: FAMOTIDINE 20 MG TABLET GT SCH (20:38)
[2019-06-01] VITALS (23 sets, daily range): BP systolic 91–141; BP diastolic 34–75
[2019-06-01] MEDS: PROPOFOL 100 ML IV PRN ×6 (01:46→21:44)
[2019-06-01] MEDS: IPRATROPIUM BROMIDE 0.5 MG/2.5 ML NEBU NEB SCH ×6 (03:22→23:15)
[2019-06-01] MEDS: ALBUTEROL SULFATE 2.5 MG/3 ML NEBU NEB SCH ×6 (03:22→23:15)
[2019-06-01 04:57] LABS: BASOPHILS % (AUTO) 0.5 % (0.0-2.0); EOSINOPHILS # (AUTO) 0.1 K/uL (0.0-0.7); EOSINOPHILS % (AUTO) 1.2 % (0.0-7.0); HEMATOCRIT 25.6 % (31.2-41.9); HEMOGLOBIN 9.2 g/dL (10.9-14.3); LYMPHOCYTES # (AUTO) 0.4 K/uL (20.0-40.0); LYMPHOCYTES % (AUTO) 6.2 % (20.5-51.5); MEAN CORPUSCULAR HEMOGLOBIN 31.1 uug (24.7-32.8); MEAN CORPUSCULAR HGB CONC 36 g/dL (32.3-35.6); MONOCYTES # (AUTO) 0.3 K/uL (2.0-10.0); MONOCYTES % (AUTO) 5.1 % (0.0-11.0); NEUTROPHILS # (AUTO) 5.1 K/uL (1.8-8.9); PLATELET COUNT (AUTO) 190 K/uL (179-408); RED BLOOD CELL COUNT(AUTO) 2.95 MIL/uL (3.63-4.92); WHITE BLOOD COUNT (AUTO) 5.9 K/uL (3.8-11.8)
[2019-06-01 05:36] LABS: CREATININE 0.7 mg/dL (0.6-1.3); MAGNESIUM 2.3 mg/dL (1.8-2.4); PHOSPHOROUS 3.5 mg/dL (2.5-4.9); POTASSIUM 3.9 mmol/L (3.5-5.1)
--- NOTE | 2019-06-01 07:30 | NUR ---
Recieved pt lying in bed, very calm and sleeping well. Pt on Propofol drip at 50mck/kg/min. HR is sinus bradycardia to SR in the low 50'S. pT OPENS EYES OFF SEDATION. Afebrile. No Vent weanimg sedation today as per Dr Mccarty. Scheduled for tomorrow.
[2019-06-01] MEDS: ACETYLCYSTEINE 10% 4ML VIAL NEB SCH ×3 (07:38→23:15)
--- NOTE | 2019-06-01 08:30 | NUR ---
Seen and examined by Dr Mccarty with new orders.
[2019-06-01] MEDS: PROTEIN SUPPLEMENT (PROSTAT) 30 ML LIQUID GT SCH ×2 (08:32→17:21)
[2019-06-01] MEDS: CEFEPIME HCL 1 G in IV DEXTROSE 5% 50 ML IV SCH ×2 (08:33→21:00)
[2019-06-01] MEDS: FAMOTIDINE 20 MG TABLET GT SCH ×2 (08:33→21:00)
[2019-06-01] MEDS: Z GUARD REMEDY PASTE 57 GM TUBE TOP SCH ×2 (08:34→21:00)
[2019-06-01] MEDS: methylPREDNISolone SOD SUCC 40 MG/ML VIAL IV SCH ×2 (08:56→21:00)
[2019-06-01] MEDS: LORAZEPAM 2 MG/1 ML VIAL IV PRN (08:59)
--- NOTE | 2019-06-01 09:00 | NUR ---
Started tube feeding infusing via NGT and running at 50ml/hr. No residuals noted. No diarrhea.
[2019-06-01] MEDS: OSMOLITE 1.2 CAL 1,000 ML LIQUID GT PRN (10:49)
--- NOTE | 2019-06-01 13:30 | NUR ---
Seen and examined by Dr Ortiz with new orders.
[2019-06-01] MEDS: IV NORMAL SALINE 250 ML IV PRN (14:31)
[2019-06-01] MEDS: ENOXAPARIN SODIUM 40 MG/0.4 ML DISP.SYRIN SQ SCH (17:22)
--- NOTE | 2019-06-01 19:00 | NUR ---
No apparent distress noted all day.
--- NOTE | 2019-06-01 19:30 | NUR ---
Report received. Patient orally intubated and to mechanical ventilator with settings: AC=14, FIO2=40%, PEEP=5 and TU=617rx; sat above 94%. Opens eyes to name, tracks, moves arms purposefully. With bilateral soft wrist restraints for safety. Suctioned orally and via ETT for large amounts of thick white to majano colored secretions. Reaches for the ETT during suctioning. Advised appropriately; reoriented. Turned and repositioned. HOB elevated above 30 degrees at all times. Addendum: 06/01/19 at 2055 by FORD GUIDO RN Amended: Links added. Addendum: 06/01/19 at 2056 by FORD GUIDO RN Amended: Links added. Addendum: 06/01/19 at 8 by FORD GUIDO RN Amended: Links added.
--- NOTE | 2019-06-01 20:00 | NUR ---
Family visited; updated of patient's condition. Addendum: 06/01/19 at 2056 by FORD GUIDO RN Amended: Links added. Addendum: 06/01/19 at 2057 by FORD GUIDO RN Amended: Links added.
[2019-06-02] VITALS (23 sets, daily range): BP systolic 90–153; BP diastolic 40–67
[2019-06-02] MEDS: LORAZEPAM 2 MG/1 ML VIAL IV PRN ×2 (01:49→15:36)
[2019-06-02] MEDS: PROPOFOL 100 ML IV PRN ×3 (02:22→16:46)
[2019-06-02] MEDS: IV NORMAL SALINE 250 ML IV PRN (02:48)
[2019-06-02] MEDS: IPRATROPIUM BROMIDE 0.5 MG/2.5 ML NEBU NEB SCH ×6 (03:11→22:43)
[2019-06-02] MEDS: ALBUTEROL SULFATE 2.5 MG/3 ML NEBU NEB SCH ×6 (03:11→22:44)
[2019-06-02 05:05] LABS: CREATININE 0.7 mg/dL (0.6-1.3); POTASSIUM 3.8 mmol/L (3.5-5.1)
[2019-06-02 05:08] LABS: BASOPHILS % (AUTO) 0.1 % (0.0-2.0); EOSINOPHILS # (AUTO) 0.1 K/uL (0.0-0.7); EOSINOPHILS % (AUTO) 2.2 % (0.0-7.0); HEMATOCRIT 26.2 % (31.2-41.9); HEMOGLOBIN 8.4 g/dL (10.9-14.3); LYMPHOCYTES # (AUTO) 0.6 K/uL (20.0-40.0); LYMPHOCYTES % (AUTO) 8.7 % (20.5-51.5); MEAN CORPUSCULAR HEMOGLOBIN 27.7 uug (24.7-32.8); MEAN CORPUSCULAR HGB CONC 32 g/dL (32.3-35.6); MEAN CORPUSCULAR VOLUME 86.5 fL (75.5-95.3); MONOCYTES # (AUTO) 0.3 K/uL (2.0-10.0); MONOCYTES % (AUTO) 4.5 % (0.0-11.0); NEUTROPHILS # (AUTO) 5.4 K/uL (1.8-8.9); NEUTROPHILS % (AUTO) 84.5 % (38.5-71.5); PLATELET COUNT (AUTO) 201 K/uL (179-408); RED BLOOD CELL COUNT(AUTO) 3.03 MIL/uL (3.63-4.92); WHITE BLOOD COUNT (AUTO) 6.4 K/uL (3.8-11.8)
--- NOTE | 2019-06-02 06:32 | NUR ---
Remains on Diprivan drip now at 30 mcg/kg/min. Still gets easily agitated when stimulated. SIMV trail at 0800. Tolerated NGT feedings at 55ml/H; Off [id number]. surveillance system monitor: SB rate 50's. BP stable. Addendum: 06/02/19 at 0632 by FORD GUIDO RN Amended: Links added.
--- NOTE | 2019-06-02 07:25 | NUR ---
recieved pt., 78 yr. old cro[place] female. resp. failure, P.N.A. orally intubated and attached to ventilator. pt. lying in bed with h.o.b. elevated 35 degrees. saturation w.n.l. dropped propofol drip to 10 / mcg / kg / minute from 25 mcg / mcg / kg / minute. tube feedings held for a couple of hours due to weaning and it is ordered.
[2019-06-02] MEDS: ACETYLCYSTEINE 10% 4ML VIAL NEB SCH ×3 (07:58→22:43)
--- NOTE | 2019-06-02 07:58 | NUR ---
PT RECEIVED ORALLY INTUBATED; 7.5 ETT, APPROXIMATELY 23 CM AT THE LIP. RECEIVED VENT SETTINGS OF AC 14, VT 600, PEEP +5, FIO2 40%. WEANING PARAMETERS SET - SETTINGS ARE NOW SIMV 4, VT 600, PS 15, PEEP +5, FIO2 40%. NURSE AWARE. PT COACHED TO TRY TO BREATH TOLERATED. ABG TO BE DONE AT 0900. PT APPEARS TO BE TOLERATING WELL. INHALATION TX ADMINISTERED ORDERED. ORAL CARE DONE. HME CHANGED. ETT READJUSTED. AMBU BAG IS AT BEDSIDE. WILL CONTINUE TO MONITOR.
[2019-06-02] MEDS: PROTEIN SUPPLEMENT (PROSTAT) 30 ML LIQUID GT SCH ×2 (08:00→17:32)
--- NOTE | 2019-06-02 08:00 | NUR ---
dropped propofol drip from 25 / mcg / kg / minute down to 10 / mcg / kg / minute. pt. was placed on S.I.M.V. by silke
--- NOTE | 2019-06-02 09:15 | NUR ---
DR. Do here to examine pt. Pt. tolerating S.I.M.V. mode.saturation w.n.l.
[2019-06-02] MEDS: FAMOTIDINE 20 MG TABLET GT SCH ×2 (09:38→21:54)
[2019-06-02] MEDS: methylPREDNISolone SOD SUCC 40 MG/ML VIAL IV SCH ×2 (09:38→21:00)
[2019-06-02] MEDS: ACETAMINOPHEN 325 MG TABLET PO PRN (09:39)
[2019-06-02] MEDS: Z GUARD REMEDY PASTE 57 GM TUBE TOP SCH ×2 (09:52→21:54)
[2019-06-02] MEDS: CEFEPIME HCL 1 G in IV DEXTROSE 5% 50 ML IV SCH ×2 (09:53→21:54)
[2019-06-02] MEDS ORDERED: POTASSIUM CHLORIDE 20 MEQ TAB.PRT.SR PO ONE (10:45)
--- NOTE | 2019-06-02 11:15 | NUR ---
Son and daughter were here earlier to visit with pt. Isaura.S.S. Saturation w.n.l. Respirations eassy, regular, and unlabored.
[2019-06-02] MEDS: ACETAzolamide SODIUM 500 MG VIAL IV SCH (11:42)
--- NOTE | 2019-06-02 13:00 | NUR ---
PT PLACED BACK ON INITIAL SETTINGS OF AC 14, 600, +5, FIO2 40% DUE TO DESATURATION/TACHYPNEIC/TACHYCARDIC. RN RAKESH AWARE. WILL CONTINUE TO MONITOR.
--- NOTE | 2019-06-02 13:00 | NUR ---
pt. was placed back on A.C. mode by R.T. due to tachypnea and desaturation.
[2019-06-02] MEDS: ENOXAPARIN SODIUM 40 MG/0.4 ML DISP.SYRIN SQ SCH (22:24)
[2019-06-03] VITALS (27 sets, daily range): BP systolic 86–180; BP diastolic 38–109
[2019-06-03] MEDS: IV NORMAL SALINE 250 ML IV PRN (00:10)
[2019-06-03] MEDS: PROPOFOL 100 ML IV PRN ×7 (00:11→23:28)
[2019-06-03] MEDS: ACETAMINOPHEN 325 MG TABLET PO PRN (00:12)
[2019-06-03] MEDS: IPRATROPIUM BROMIDE 0.5 MG/2.5 ML NEBU NEB SCH ×6 (04:15→22:42)
[2019-06-03] MEDS: ALBUTEROL SULFATE 2.5 MG/3 ML NEBU NEB SCH ×6 (04:15→22:44)
[2019-06-03 05:07] LABS: BASOPHILS % (AUTO) 0.3 % (0.0-2.0); EOSINOPHILS # (AUTO) 0.2 K/uL (0.0-0.7); EOSINOPHILS % (AUTO) 2.8 % (0.0-7.0); HEMATOCRIT 29.3 % (31.2-41.9); HEMOGLOBIN 9.3 g/dL (10.9-14.3); LYMPHOCYTES # (AUTO) 0.5 K/uL (20.0-40.0); LYMPHOCYTES % (AUTO) 7.4 % (20.5-51.5); MEAN CORPUSCULAR HEMOGLOBIN 27.3 uug (24.7-32.8); MEAN CORPUSCULAR HGB CONC 32 g/dL (32.3-35.6); MEAN CORPUSCULAR VOLUME 86.1 fL (75.5-95.3); MONOCYTES # (AUTO) 0.2 K/uL (2.0-10.0); MONOCYTES % (AUTO) 2.8 % (0.0-11.0); NEUTROPHILS # (AUTO) 6.3 K/uL (1.8-8.9); NEUTROPHILS % (AUTO) 86.7 % (38.5-71.5); PLATELET COUNT (AUTO) 218 K/uL (179-408); RED BLOOD CELL COUNT(AUTO) 3.41 MIL/uL (3.63-4.92); WHITE BLOOD COUNT (AUTO) 7.2 K/uL (3.8-11.8)
[2019-06-03 05:19] LABS: CREATININE 0.6 mg/dL (0.6-1.3); MAGNESIUM 2.2 mg/dL (1.8-2.4); PHOSPHOROUS 3.8 mg/dL (2.5-4.9); POTASSIUM 4.4 mmol/L (3.5-5.1)
--- NOTE | 2019-06-03 05:56 | NUR ---
Arnaldo care was rendered. no Sabi.Michael.christ. saturation w.n.l.
[2019-06-03] MEDS: LORAZEPAM 2 MG/1 ML VIAL IV PRN (06:55)
[2019-06-03] MEDS: ACETYLCYSTEINE 10% 4ML VIAL NEB SCH ×3 (07:35→22:43)
[2019-06-03] MEDS: ACETAzolamide SODIUM 500 MG VIAL IV SCH (08:17)
[2019-06-03] MEDS: FAMOTIDINE 20 MG TABLET GT SCH ×2 (08:24→21:23)
--- NOTE | 2019-06-03 08:30 | NUR ---
Attending Vlad Walker in the unit to see and examine patient, full report given. standing order for levophed with parameter sbp of 90 or MAP 0f 65 and above. Will continue to monitor.
[2019-06-03] MEDS: CEFEPIME HCL 1 G in IV DEXTROSE 5% 50 ML IV SCH ×2 (08:34→21:12)
[2019-06-03] MEDS: methylPREDNISolone SOD SUCC 40 MG/ML VIAL IV SCH ×2 (08:37→21:24)
[2019-06-03] MEDS: Z GUARD REMEDY PASTE 57 GM TUBE TOP SCH ×2 (08:38→21:21)
[2019-06-03] MEDS: PROTEIN SUPPLEMENT (PROSTAT) 30 ML LIQUID GT SCH ×2 (08:39→17:44)
--- NOTE | 2019-06-03 09:00 | NUR ---
With patient mildly sedated due to restlessness and agitation, placed on CPAP mode PSV 8. patient quickly desaturated down to mid-80's, with recovery periods of saturation in the upper 88-91. ABG drawn resulted. and at 0945 patient placed back on A/C 14, tv 600, FIO2 40%. Peep 5.
--- NOTE | 2019-06-03 09:00 | NUR ---
Placed on CPAP PS 8.. RN aware
--- NOTE | 2019-06-03 09:45 | NUR ---
Placed back on A/C with previous settings..
--- NOTE | 2019-06-03 09:47 | NUR ---
Pt on A/C due to desaturations and increased work of breathing on CPAP, ABG drawn, RN notified of results: Low Ph / High pCO2..
--- NOTE | 2019-06-03 10:16 | NUR ---
Pulmonary services, Dr. Hi Mckenzie. in the unit to see and examine patient ABG results and pt's condition, and care plan discussed with Md. See order hx.
[2019-06-03] MEDS: OSMOLITE 1.2 CAL 1,000 ML LIQUID GT PRN (10:32)
[2019-06-03 11:13] LABS: ABG BASE EXCESS 7.4 mmol/L; ABG HCO3 33.8 mmol/L; ABG PCO2 58.1 mmHg (35.0-45.0); ABG PH 7.382 (7.350-7.450); ABG PO2 98.5 mmHg (75.0-100.0); ABG SITE LEFT RADIAL; ABG TOTAL HEMOGLOBIN 9.9 G/dL (12.0-16.0); COHb 0.9 % (0.5-1.5); MetHb 0.2 % (0.0-1.5); O2Hb 95.6 % (94.0-97.0); VENT MODE VENT - SIMV; VT, ABG 600 mL
[2019-06-03 11:14] LABS: ABG BASE EXCESS 4.6 mmol/L; ABG HCO3 35.9 mmol/L; ABG PCO2 100.9 mmHg (35.0-45.0); ABG PH 7.169 (7.350-7.450); ABG PO2 69.3 mmHg (75.0-100.0); ABG SITE LEFT RADIAL; ABG TOTAL HEMOGLOBIN 11.6 G/dL (12.0-16.0); MetHb 0.3 % (0.0-1.5); O2Hb 85.3 % (94.0-97.0); VENT MODE VENT - CPAP - PS 8
[2019-06-03] MEDS ORDERED: NOREPINEPHRINE BITARTRATE 16 MG in IV DEXTROSE 5% 500 ML IV PRN (19:15)
[2019-06-03] MEDS: ENOXAPARIN SODIUM 40 MG/0.4 ML DISP.SYRIN SQ SCH (21:30)
[2019-06-04] VITALS (31 sets, daily range): BP systolic 94–153; BP diastolic 38–97
[2019-06-04] MEDS: PROPOFOL 100 ML IV PRN ×2 (02:10→04:55)
[2019-06-04] MEDS: LORAZEPAM 2 MG/1 ML VIAL IV PRN (03:32)
[2019-06-04] MEDS: IPRATROPIUM BROMIDE 0.5 MG/2.5 ML NEBU NEB SCH ×6 (03:57→22:36)
[2019-06-04] MEDS: ALBUTEROL SULFATE 2.5 MG/3 ML NEBU NEB SCH ×6 (03:57→22:36)
[2019-06-04 05:10] LABS: CREATININE 0.7 mg/dL (0.6-1.3); MAGNESIUM 2.1 mg/dL (1.8-2.4); PHOSPHOROUS 3.8 mg/dL (2.5-4.9); POTASSIUM 3.7 mmol/L (3.5-5.1)
--- NOTE | 2019-06-04 05:12 | NUR ---
PT ON CONT MARTINEZ VENT WITH 7.5 ET/TUBE IN PLACE AND SECURED WITH ANCHOR FAST, ROTATE Q2, PT DOES ASSIST AT TIMES, GOOD COUGH , SUCTIONED LIGHT PALE YELL TINGE SECRETIONS, NEB INLINE Q4 TOLL WELL, ALL VENT ALARMS GOOD, NO VENT CHANGES MADE, CHANGE HME, AMBU BAG AT BEDSIDE. Michelle ACUÑAP Addendum: 06/04/19 at 0515 by GIANFRANCO ESTRADA RT Amended: Links added.
[2019-06-04 05:13] LABS: BASOPHILS # (AUTO) 0.1 K/uL (0.0-8.0); BASOPHILS % (AUTO) 0.6 % (0.0-2.0); EOSINOPHILS # (AUTO) 0.3 K/uL (0.0-0.7); EOSINOPHILS % (AUTO) 3.7 % (0.0-7.0); HEMOGLOBIN 9.4 g/dL (10.9-14.3); LYMPHOCYTES # (AUTO) 0.5 K/uL (20.0-40.0); LYMPHOCYTES % (AUTO) 5.6 % (20.5-51.5); MEAN CORPUSCULAR HEMOGLOBIN 30.3 uug (24.7-32.8); MEAN CORPUSCULAR HGB CONC 35 g/dL (32.3-35.6); MEAN CORPUSCULAR VOLUME 87.1 fL (75.5-95.3); MONOCYTES # (AUTO) 0.4 K/uL (2.0-10.0); MONOCYTES % (AUTO) 4.2 % (0.0-11.0); NEUTROPHILS # (AUTO) 7.7 K/uL (1.8-8.9); NEUTROPHILS % (AUTO) 85.9 % (38.5-71.5); PLATELET COUNT (AUTO) 275 K/uL (179-408); WHITE BLOOD COUNT (AUTO) 8.9 K/uL (3.8-11.8)
[2019-06-04] MEDS: ACETYLCYSTEINE 10% 4ML VIAL NEB SCH ×3 (07:35→22:36)
[2019-06-04] MEDS: PROTEIN SUPPLEMENT (PROSTAT) 30 ML LIQUID GT SCH ×2 (08:00→16:38)
--- NOTE | 2019-06-04 08:15 | NUR ---
WITH RT AT BEDSIDE, PATIENT PLACED ON CPAP MODE. PSV OF 8. WITHIN 5 MINUTES SATURATION FLUCTUATING FROM 92- 96%. PATIENT INSTRUCTED TO TAKE DEEP BREATHS. SEDATION OFF. PATIENT FULLY AWAKE AND FOLLOWING DIRECTIONS. WILL CONTINUE TO MONITOR.
--- NOTE | 2019-06-04 08:30 | NUR ---
MIGUELITO ATTENDING DIRECTOR [employer] IN THE UNIT TO EXAMINE PATIENT, REPORT GIVEN. CPAP IN PROGRESS, ORDERS TO CONTINUE CURRENT CARE PLAN TO RECEIVE.
[2019-06-04] MEDS: ACETAzolamide SODIUM 500 MG VIAL IV SCH (08:46)
[2019-06-04] MEDS: methylPREDNISolone SOD SUCC 40 MG/ML VIAL IV SCH ×2 (08:46→20:56)
[2019-06-04] MEDS: Z GUARD REMEDY PASTE 57 GM TUBE TOP SCH ×2 (08:48→20:57)
[2019-06-04] MEDS: CEFEPIME HCL 1 G in IV DEXTROSE 5% 50 ML IV SCH ×2 (08:48→20:56)
[2019-06-04] MEDS: FAMOTIDINE 20 MG TABLET GT SCH ×2 (09:00→20:56)
[2019-06-04 09:20] LABS: ABG BASE EXCESS 4.4 mmol/L; ABG HCO3 32.8 mmol/L; ABG PCO2 71.8 mmHg (35.0-45.0); ABG PH 7.277 (7.350-7.450); ABG PO2 98.3 mmHg (75.0-100.0); ABG SITE RIGHT RADIAL; ABG TOTAL HEMOGLOBIN 10.3 G/dL (12.0-16.0); COHb 0.7 % (0.5-1.5); CPAP,BG 5 cmH20; MetHb 0.2 % (0.0-1.5); O2Hb 95.2 % (94.0-97.0); VENT MODE VENT - CPAP 5; VT, ABG 390 mL
--- NOTE | 2019-06-04 09:55 | NUR ---
PULMONARY SERVICES DR MILLIGAN IN THE UNIT. FULL REPORT GIVEN AND AT THIS TIME BOTH DR MILLIGAN AND MIGUELITO CANAS DISCUSSED THE CARE PLAN. ORDERS TO EXTUBATE PATIENT RECIEVED BASED ON ABG RESULTS.
[2019-06-04] MEDS ORDERED: DC PROPOFOL ONCE EXTUBATED XX PRN (10:15)
--- NOTE | 2019-06-04 10:28 | NUR ---
PATIENT EXTUBATED ORDERED RT AT BEDSIDE AND FAMILY AT BEDSIDE. PATIENT LEFT ON 4 L VIA NC SATURATION MAINTAINED AT 95%. PATIENT ALERT AND ORIENTED X4, PATIENT FOLLOWING COMMANDS. NG TUBE REMOVED.
[2019-06-04] MEDS: ENOXAPARIN SODIUM 40 MG/0.4 ML DISP.SYRIN SQ SCH (20:58)
[2019-06-05] VITALS (24 sets, daily range): BP systolic 103–156; BP diastolic 43–98
[2019-06-05] MEDS: ALBUTEROL SULFATE 2.5 MG/3 ML NEBU NEB SCH ×6 (02:36→22:53)
[2019-06-05] MEDS: IPRATROPIUM BROMIDE 0.5 MG/2.5 ML NEBU NEB SCH ×6 (02:36→22:53)
[2019-06-05 05:12] LABS: BASOPHILS % (AUTO) 0.1 % (0.0-2.0); EOSINOPHILS # (AUTO) 0.3 K/uL (0.0-0.7); EOSINOPHILS % (AUTO) 4.6 % (0.0-7.0); HEMATOCRIT 28.7 % (31.2-41.9); HEMOGLOBIN 9.1 g/dL (10.9-14.3); LYMPHOCYTES # (AUTO) 0.5 K/uL (20.0-40.0); LYMPHOCYTES % (AUTO) 7.9 % (20.5-51.5); MEAN CORPUSCULAR HEMOGLOBIN 27.6 uug (24.7-32.8); MEAN CORPUSCULAR HGB CONC 32 g/dL (32.3-35.6); MEAN CORPUSCULAR VOLUME 87.1 fL (75.5-95.3); MONOCYTES # (AUTO) 0.2 K/uL (2.0-10.0); MONOCYTES % (AUTO) 3.8 % (0.0-11.0); NEUTROPHILS % (AUTO) 83.6 % (38.5-71.5); PLATELET COUNT (AUTO) 205 K/uL (179-408); RED BLOOD CELL COUNT(AUTO) 3.29 MIL/uL (3.63-4.92); WHITE BLOOD COUNT (AUTO) 5.9 K/uL (3.8-11.8)
[2019-06-05 05:25] LABS: CARBON DIOXIDE 34 mmol/L (21-32); CHLORIDE 108 mmol/L (98-107); CREATININE 0.5 mg/dL (0.6-1.3); GLUCOSE 121 mg/dL (74-106); MAGNESIUM 2.2 mg/dL (1.8-2.4); PHOSPHOROUS 3.7 mg/dL (2.5-4.9); POTASSIUM 3.9 mmol/L (3.5-5.1); UREA NITROGEN, BLOOD 37 mg/dL (7-18)
[2019-06-05] MEDS: ACETYLCYSTEINE 10% 4ML VIAL NEB SCH ×3 (07:53→22:53)
[2019-06-05] MEDS: PROTEIN SUPPLEMENT (PROSTAT) 30 ML LIQUID GT SCH ×2 (08:00→17:00)
--- NOTE | 2019-06-05 08:30 | NUR ---
Aaron attending N.P in the unit to see and examine patient, report given. Orders to continue with care plan received.
[2019-06-05] MEDS: FAMOTIDINE 20 MG TABLET GT SCH ×2 (08:40→21:15)
[2019-06-05] MEDS: ACETAzolamide SODIUM 500 MG VIAL IV SCH (09:00)
[2019-06-05] MEDS: methylPREDNISolone SOD SUCC 40 MG/ML VIAL IV SCH ×2 (09:02→21:15)
[2019-06-05] MEDS: Z GUARD REMEDY PASTE 57 GM TUBE TOP SCH ×2 (09:02→21:19)
[2019-06-05] MEDS: CEFEPIME HCL 1 G in IV DEXTROSE 5% 50 ML IV SCH ×2 (09:04→21:20)
--- NOTE | 2019-06-05 10:33 | NUR ---
Patient seen by physical therapist, as reported pt. tolerated therapy well.
--- NOTE | 2019-06-05 19:30 | NUR ---
rounds made patient in bed ,awake no s/s fo distress tolerating 02 nasal cannula at 3 l /min . hob up , advised patient to call for help . patient call light placed with in reach patient speaks little Gibraltarian and understands simple [place]raltarian . f/c to bsd .
[2019-06-05] MEDS: ENOXAPARIN SODIUM 40 MG/0.4 ML DISP.SYRIN SQ SCH (21:22)
--- NOTE | 2019-06-05 21:30 | NUR ---
assisted with dinner ,hob up , patient on regular diet finely chopped .ate 75 % of the dinner tray ,able to feed self with supervision, she liked ice chips placed at bedside .
--- NOTE | 2019-06-05 23:00 | NUR ---
slept on and off , able to turned from side to side . no respiratory distress this time placed 02 to 3 l/min n/c .saturation 92 to 95% she is a mouth breather , rr 15 to 20 .
[2019-06-06] VITALS (14 sets, daily range): BP systolic 107–149; BP diastolic 41–66
[2019-06-06 00:11] LABS: ABG BASE EXCESS 4.4 mmol/L; ABG HCO3 31.3 mmol/L; ABG PCO2 60.4 mmHg (35.0-45.0); ABG PH 7.333 (7.350-7.450); ABG PO2 86.1 mmHg (75.0-100.0); ABG SITE RIGHT RADIAL; ABG TOTAL HEMOGLOBIN 9.9 G/dL (12.0-16.0); MetHb 0.2 % (0.0-1.5); O2Hb 94.7 % (94.0-97.0); VENT MODE Nasal Cannula
--- NOTE | 2019-06-06 02:00 | NUR ---
am care done ,bath patient , f/c done and changed soiled linens and gowns .
[2019-06-06] MEDS: IPRATROPIUM BROMIDE 0.5 MG/2.5 ML NEBU NEB SCH ×5 (02:32→21:14)
[2019-06-06] MEDS: ALBUTEROL SULFATE 2.5 MG/3 ML NEBU NEB SCH ×5 (02:32→21:14)
--- NOTE | 2019-06-06 04:30 | NUR ---
am labs collected and send to labs , portable chest xray done also by wet process technician at bedside .
[2019-06-06 05:08] LABS: BASOPHILS % (AUTO) 0.3 % (0.0-2.0); EOSINOPHILS # (AUTO) 0.1 K/uL (0.0-0.7); EOSINOPHILS % (AUTO) 1.1 % (0.0-7.0); HEMATOCRIT 30.2 % (31.2-41.9); HEMOGLOBIN 9.7 g/dL (10.9-14.3); LYMPHOCYTES # (AUTO) 0.4 K/uL (20.0-40.0); LYMPHOCYTES % (AUTO) 5.2 % (20.5-51.5); MEAN CORPUSCULAR HEMOGLOBIN 27.6 uug (24.7-32.8); MEAN CORPUSCULAR HGB CONC 32 g/dL (32.3-35.6); MEAN CORPUSCULAR VOLUME 86.4 fL (75.5-95.3); MONOCYTES # (AUTO) 0.2 K/uL (2.0-10.0); MONOCYTES % (AUTO) 2.8 % (0.0-11.0); NEUTROPHILS # (AUTO) 6.4 K/uL (1.8-8.9); NEUTROPHILS % (AUTO) 90.6 % (38.5-71.5); PLATELET COUNT (AUTO) 234 K/uL (179-408); WHITE BLOOD COUNT (AUTO) 7.1 K/uL (3.8-11.8)
[2019-06-06 05:14] LABS: CREATININE 0.6 mg/dL (0.6-1.3); PHOSPHOROUS 3.1 mg/dL (2.5-4.9); POTASSIUM 4.6 mmol/L (3.5-5.1)
--- NOTE | 2019-06-06 06:00 | NUR ---
patient in bed ,asleep no s/s of pain breathing even and unlbaored . hob up . f/c to bsd .
[2019-06-06] MEDS: IV NORMAL SALINE 250 ML IV PRN (06:41)
[2019-06-06] MEDS: ACETYLCYSTEINE 10% 4ML VIAL NEB SCH ×3 (08:16→21:15)
[2019-06-06] MEDS: Z GUARD REMEDY PASTE 57 GM TUBE TOP SCH ×2 (09:00→20:39)
--- NOTE | 2019-06-06 09:00 | NUR ---
RT PT FIO2 WAS CHANGED TO 70% RN AWARE NO DISTRESS NOTED WILL CONTINUE TO MONITOR PT. Addendum: 06/06/19 at 1807 by ÓSCAR CUELLAR RT WRONG PT CHARTING
[2019-06-06] MEDS: CEFEPIME HCL 1 G in IV DEXTROSE 5% 50 ML IV SCH (09:24)
[2019-06-06] MEDS: FAMOTIDINE 20 MG TABLET GT SCH ×2 (09:24→20:08)
[2019-06-06] MEDS: ACETAzolamide SODIUM 500 MG VIAL IV SCH (09:24)
[2019-06-06] MEDS: PROTEIN SUPPLEMENT (PROSTAT) 30 ML LIQUID GT SCH ×2 (09:26→17:15)
[2019-06-06] MEDS: methylPREDNISolone SOD SUCC 40 MG/ML VIAL IV SCH ×2 (09:42→20:08)
--- NOTE | 2019-06-06 11:15 | NUR ---
RT PER MD PEEP OR +5 WAS ADDED MD AWARE OF LOB B/P RN AWARE OR ORDER WILL CONTINUE TO MONITOR PT. Addendum: 06/06/19 at 1807 by ÓSCAR CUELLAR RT WRONG PT CHARTING
--- NOTE | 2019-06-06 12:40 | NUR ---
Received patient from [facility]U, received report from Lexi GARCIA, Patient is awake and Verbally responsive. No signs of distress. No SOB. No complain of Pain at this time, Kept comfortable. Call light within easy reach. Will continue to monitor.
--- NOTE | 2019-06-06 18:03 | NUR ---
RT NO CHANGES MADE AT THIS TIME VENT REMAINS THE SAME. PT SETTING AC 16 VT 450 PEEP +5 FIO2 70%. ALARMS ON AND AUDIBLE WILL CONTINUE TO MONITOR PT. Addendum: 06/06/19 at 1806 by ÓSCAR CUELLAR RT WRONG PT CHARTING
--- NOTE | 2019-06-06 18:38 | NUR ---
Patient in Bed, awake and verbally responsive. Setswana speaking. No signs of distress noted. No SOB. On Oxygen at 3LPM via nasal cannula, tolerated well. Sat 94%. No complain of pain or discomfort. All needs attended and met. Kept clean and comfortable. Kept the call light within easy reach. Will endorse to Oncoming Nurse
[2019-06-06] MEDS: ENOXAPARIN SODIUM 40 MG/0.4 ML DISP.SYRIN SQ SCH (20:10)
[2019-06-07] MEDS: ALBUTEROL SULFATE 2.5 MG/3 ML NEBU NEB SCH ×5 (00:07→15:09)
[2019-06-07] MEDS: IPRATROPIUM BROMIDE 0.5 MG/2.5 ML NEBU NEB SCH ×5 (00:07→15:09)
[2019-06-07 00:44] VITALS: BP 111/53
--- NOTE | 2019-06-07 05:06 | NUR ---
received patient in lying in bed on iPAD. a/o x3. no signs of acute distress. v/s stable throughout shift. all medications administered and needs met. will continue to monitor and endorse care accordingly. safety and comfort measures provided. bed in lowest position, side rails up x2, and bed alarm on. patient refusing DVT pumps. will continue to monitor and endorse care accordingly.
[2019-06-07 05:39] VITALS: BP 123/52
[2019-06-07 07:49] LABS: BASOPHILS % (AUTO) 0.4 % (0.0-2.0); EOSINOPHILS # (AUTO) 0.2 K/uL (0.0-0.7); EOSINOPHILS % (AUTO) 2.1 % (0.0-7.0); HEMATOCRIT 33.6 % (31.2-41.9); HEMOGLOBIN 10.6 g/dL (10.9-14.3); LYMPHOCYTES # (AUTO) 0.7 K/uL (20.0-40.0); LYMPHOCYTES % (AUTO) 9.4 % (20.5-51.5); MEAN CORPUSCULAR HEMOGLOBIN 27.7 uug (24.7-32.8); MEAN CORPUSCULAR HGB CONC 32 g/dL (32.3-35.6); MONOCYTES # (AUTO) 0.4 K/uL (2.0-10.0); MONOCYTES % (AUTO) 4.8 % (0.0-11.0); NEUTROPHILS # (AUTO) 6.4 K/uL (1.8-8.9); NEUTROPHILS % (AUTO) 83.3 % (38.5-71.5); PLATELET COUNT (AUTO) 210 K/uL (179-408); RED BLOOD CELL COUNT(AUTO) 3.82 MIL/uL (3.63-4.92); WHITE BLOOD COUNT (AUTO) 7.6 K/uL (3.8-11.8)
[2019-06-07 08:02] LABS: CARBON DIOXIDE 31 mmol/L (21-32); CHLORIDE 106 mmol/L (98-107); CREATININE 0.4 mg/dL (0.6-1.3); GLUCOSE 96 mg/dL (74-106); MAGNESIUM 2.2 mg/dL (1.8-2.4); PHOSPHOROUS 3.1 mg/dL (2.5-4.9); UREA NITROGEN, BLOOD 32 mg/dL (7-18)
[2019-06-07] MEDS: methylPREDNISolone SOD SUCC 40 MG/ML VIAL IV SCH (08:12)
[2019-06-07] MEDS: FAMOTIDINE 20 MG TABLET GT SCH (08:13)
[2019-06-07] MEDS: ACETAzolamide SODIUM 500 MG VIAL IV SCH (08:13)
[2019-06-07] MEDS: ACETYLCYSTEINE 10% 4ML VIAL NEB SCH ×2 (08:13→15:09)
[2019-06-07] MEDS: PROTEIN SUPPLEMENT (PROSTAT) 30 ML LIQUID GT SCH ×2 (08:13→17:15)
[2019-06-07] MEDS: Z GUARD REMEDY PASTE 57 GM TUBE TOP SCH (08:24)
[2019-06-07] MEDS: ACETAMINOPHEN 325 MG TABLET PO PRN (10:46)
[2019-06-07 11:45] VITALS: BP 138/64
[2019-06-07 12:27] LABS: ABG BASE EXCESS 6.7 mmol/L; ABG HCO3 34.3 mmol/L; ABG PCO2 67.8 mmHg (35.0-45.0); ABG PH 7.322 (7.350-7.450); ABG PO2 77.8 mmHg (75.0-100.0); ABG SITE RIGHT RADIAL; ABG TOTAL HEMOGLOBIN 9.9 G/dL (12.0-16.0); COHb 1.4 % (0.5-1.5); MetHb 0.2 % (0.0-1.5); O2Hb 93.5 % (94.0-97.0); VENT MODE Nasal Cannula
[2019-06-07] MEDS ORDERED: METH4TAB3 PO (13:27)
[2019-06-07 15:52] VITALS: BP 152/80
--- NOTE | 2019-06-07 18:25 | NUR ---
Patient discharged to home in stable condition, Discharge papers and instructions given and explained to patient/patient's family. Medication education by pharmacist refused by patient. Midline removed, catheter intact and well tolerated by patient. left hospital via private car.
== END 2019-06-07 18:27 | disposition home health service (06) | DRG 870 ==
LOC: ER 12:04 → CCU 14:34 → TELE3 06-06 13:31
PROVIDERS: ADMIT Internal Medicine; ATTEND Internal Medicine
PROC: 5A1955Z Respiratory Ventilation, Greater than 96 Consecutive Hours (ICD-10-PCS; principal; 2019-05-26)
PROC: 0BH17EZ Insertion of Endotracheal Airway into Trachea, Via Natural or Artificial Opening (ICD-10-PCS; 2019-05-26)
PROC: 0DH673Z Insertion of Infusion Device into Stomach, Via Natural or Artificial Opening (ICD-10-PCS; 2019-05-27)
PROC: 05HC33Z Insertion of Infusion Device into Left Basilic Vein, Percutaneous Approach (ICD-10-PCS; 2019-05-27)
DX: A41.9 Sepsis, unspecified organism (principal); G92 Toxic encephalopathy; J96.21 Acute and chronic respiratory failure with hypoxia; J96.22 Acute and chronic respiratory failure with hypercapnia; J69.0 Pneumonitis due to inhalation of food and vomit; J15.1 Pneumonia due to Pseudomonas; D68.59 Other primary thrombophilia; E44.0 Moderate protein-calorie malnutrition; I50.32 Chronic diastolic (congestive) heart failure; Z68.41 Body mass index [BMI] 40.0-44.9, adult; J47.0 Bronchiectasis with acute lower respiratory infection; J98.11 Atelectasis; R65.20 Severe sepsis without septic shock; Z74.09 Other reduced mobility; E78.5 Hyperlipidemia, unspecified; K21.9 Gastro-esophageal reflux disease without esophagitis; H91.92 Unspecified hearing loss, left ear; I11.0 Hypertensive heart disease with heart failure; I67.2 Cerebral atherosclerosis; I25.10 Atherosclerotic heart disease of native coronary artery without angina pectoris; E66.9 Obesity, unspecified; I08.3 Combined rheumatic disorders of mitral, aortic and tricuspid valves; I70.0 Atherosclerosis of aorta; G47.33 Obstructive sleep apnea (adult) (pediatric); I27.20 Pulmonary hypertension, unspecified; K42.9 Umbilical hernia without obstruction or gangrene; Z79.899 Other long term (current) drug therapy; Z95.2 Presence of prosthetic heart valve; Z90.49 Acquired absence of other specified parts of digestive tract; Z88.0 Allergy status to penicillin; D69.6 Thrombocytopenia, unspecified; D64.9 Anemia, unspecified
CPT/HCPCS: 36415; 36569; 36600; 70030-TC; 70450; 71045; 71250; 76705; 83605; 83735; 84100; 84443; 84478; 85025; 85730; 87040; 87070; 87077; 87086; 87400; 93005; 93307; 94002; 94003; 94640; 94664; A4663; G0378; J0330; J0360; J0692; J0696; J1120; J1650; J1940; J1956; J2060; J2920; J2930; J3475; J3490; J3590; J7050; J7060